=== PATIENT | male | born 1970 | race Two or more races ===

== ENCOUNTER 2018-01-20 15:58 | Emergency (ER) | payer MEDICAID, OTHER ==
[~2018-01-20] VITALS: Ht 175.3 cm; Wt 90.7 kg
[2018-01-20] MEDS ORDERED: SODIUM CHLORIDE 0.9% 1,000 ML IV ONE ×2 (16:10→17:45)
[2018-01-20] MEDS ORDERED: ACETAMINOPHEN 500 MG TAB PO ONE (16:15)
[2018-01-20] MEDS ORDERED: LEVOFLOXACIN 500 MG/100 ML PREMIX BAG IV ONE (16:15)
[2018-01-20 16:46] LABS: Basophils # (auto) 0 uL; Basophils % (auto) 0.1 % (0.0-2.0); Eosinophils # (auto) 0.1 uL; Eosinophils % (auto) 0.6 % (0.0-7.0); Hematocrit 35.1 % (41.0-53.0); Hemoglobin 12.3 g/dL (13.5-17.5); Lymphocytes # (auto) 0.2 uL; Lymphocytes % (auto) 1.7 % (10.0-50.0); Mean Corpuscular Hemoglobin 32.3 pg (28.0-32.0); Mean Corpuscular Hgb Conc. 34.9 g/dL (32.0-36.0); Mean Corpuscular Volume 92.5 fL (80.0-100.0); Monocytes # (auto) 0.4 uL; Monocytes % (auto) 3.3 % (0.0-12.0); Neutrophils # (auto) 10.4 uL; Neutrophils % (auto) 94.3 % (37.0-80.0); Platelet Count (auto) 66 10^3/uL (140-450); Red Blood Cells 3.79 10^6/uL (4.5-5.90); Red Cell Distribution Width 14.1 % (11.8-14.3)
[2018-01-20 17:02] LABS: Alanine Aminotransferase 26 U/L (16-61); Albumin 2.3 g/dL (3.4-5.0); Anion Gap 12 (5-15); Aspartate Aminotransferase 36 U/L (15-37); BUN/Creatinine Ratio 15.2; Blood Urea Nitrogen 15 mg/dL (7-18); Carbon Dioxide 17 mmol/L (21-32); Chloride 109 mmol/L (98-107); GFR African American 103 mL/min; GFR Non-African American 85 mL/min; Glucose 148 mg/dL (74-106); Magnesium 1.5 mg/dL (1.6-2.6); Potassium 3.9 mmol/L (3.5-5.1); Sodium 138 mmol/L (136-145)
[2018-01-20 17:17] LABS: Alkaline Phosphatase 132 U/L (45-117); Bilirubin, Total 1.4 mg/dL (0.2-1.0); Calcium 7.5 mg/dL (8.5-10.1); Total Protein 6.8 g/dL (6.4-8.2)
[2018-01-20] MEDS ORDERED: SODIUM CHLORIDE 0.9% 1,000 ML IV SCH (17:39)
[2018-01-20] MEDS ORDERED: NITROGLYCERIN 0.4 MG SL TAB SL PRN (17:45)
[2018-01-20] MEDS ORDERED: LACTULOSE 20Gm/30ML SOLN PO PRN (17:45)
[2018-01-20] MEDS ORDERED: TEMAZEPAM 15 MG CAP PO PRN (17:45)
[2018-01-20] MEDS ORDERED: DEXTROSE (50%) 50ML SYRG IV PRN (17:45)
[2018-01-20] MEDS ORDERED: ALBUTEROL SULF 2.5 MG/0.5ML(0.5%) NEB SOLN NEB PRN (17:45)
[2018-01-20] MEDS ORDERED: PROMETHAZINE HCL 25 MG/ML 1ML IV PRN (17:45)
[2018-01-20] MEDS ORDERED: MORPHINE SULF INJ 2 MG/ML SYRINGE 1ML IV PRN ×2 (17:45)
[2018-01-20] MEDS ORDERED: PIPERACILLIN-TAZOB 3.375GM 100 ML IV ONE (17:45)
[2018-01-20] MEDS ORDERED: ACETAMINOPHEN 500 MG TAB PO PRN (17:45)
[2018-01-20] MEDS ORDERED: LORazepam 0.5 MG TAB PO PRN (17:45)
[2018-01-20] MEDS ORDERED: HYDROcodone-ACET 5/325MG TAB PO PRN (17:45)
[2018-01-20] MEDS ORDERED: VANCOMYCIN PER PHARMACY 0 MG IV SCH (18:30)
[2018-01-20] MEDS ORDERED: VANCOMYCIN 1GM/250ML 250 ML IV ONE (18:30)
[2018-01-20 18:31] VITALS: BP 123/72
[2018-01-20] MEDS ORDERED: InsuLIN REG 1unit/0.01ml Soln (100units/ml) SC SCH (22:00)
[2018-01-20] MEDS ORDERED: ACCU-CHEK COMFORT CURVE STRIP VI SCH (22:00)
[2018-01-21] MEDS ORDERED: PIPERACILLIN-TAZOB 3.375GM 100 ML IV SCH
[2018-01-21] MEDS ORDERED: PANTOPRAZOLE 40 MG TAB PO SCH (10:00)
[2018-01-21] MEDS ORDERED: AZITHROMYCIN 500MG/ 250ML 250 ML IV SCH (10:00)
== END 2018-01-20 18:36 | disposition left against medical advice (07) ==
LOC: ER 16:09
DX: A41.9 Sepsis, unspecified organism (principal); E11.9 Type 2 diabetes mellitus without complications; E78.5 Hyperlipidemia, unspecified; I10 Essential (primary) hypertension
CPT/HCPCS: 36415; 71045; 80053; 82140; 83036; 83605; 83735; 83880; 84484; 85025; 87040; 87077; 87186; 94761; 96374; 99291; J1956; J7030

== ENCOUNTER 2020-08-07 07:13 | Emergency (ER) | payer MEDICARE, MEDICAID ==
[~2020-08-07] VITALS: Ht 177.8 cm; Wt 83.9 kg
[2020-08-07] MEDS ORDERED: CALCIUM CHLOR(10%) 100MG/ML 10ML SYRINGE IV ONE (07:14)
[2020-08-07] MEDS ORDERED: EPINEPHrine HCL 1 MG/10 ML SYRG IV ONE (07:14)
[2020-08-07] MEDS ORDERED: DEXTROSE (50%) 50ML SYRG IV ONE (07:14)
[2020-08-07] MEDS ORDERED: SODIUM BICARBONATE 8.4% INJ 50ML SYRINGE IV ONE (07:14)
[2020-08-07 07:19] VITALS: BP 0/0
[2020-08-07] MEDS ORDERED: EPINEPHrine HCL 1 MG/10 ML SYRG ONE (07:23)
[2020-08-07] MEDS ORDERED: SODIUM BICARBONATE 8.4% INJ 50ML SYRINGE ONE (07:23)
== END 2020-08-07 11:50 ==
LOC: EDBD 07:13 → EDUNIT# 07:13 → ER 07:13
DX: K74.60 Unspecified cirrhosis of liver (principal); I46.9 Cardiac arrest, cause unspecified; E11.9 Type 2 diabetes mellitus without complications
CPT/HCPCS: 92950; 99285; J0171; J7042